=== PATIENT | male | born 1990 | race Caucasian/White ===

== ENCOUNTER 2017-05-21 01:02 | Emergency (ER) | payer BC ==
[2017-05-21] MEDS ORDERED: KETOROLAC 30 MG/ML VIAL IVP ONE (01:10)
[2017-05-21] MEDS ORDERED: 0.9 % SODIUM CHLORIDE 1000ML 1,000 ML IV SCH (01:15)
--- NOTE | 2017-05-21 01:15 | Emergency Department Record ---
History of Present Illness - General Chief complaint: Mouth sores/ulcers Stated complaint: COLD SORES Time Seen by Provider: 05/21/17 01:09 Source: Patient Mode of Arrival: Ambulatory Limitations: No limitations - History of Present Illness Initial comments: 26 yo male presents to ED with a CC of ulcerations to the tongue associated with "swelling" of the tip of the tongue following tongue piercing. Patient denies fevers, chills, or drainage from the piercing site. Patient does reports the sensation of "swelling extending into the neck". Patient denies health problems at his baseline. MD complaint: Other (tongue swelling) Onset/Timin -: Days(s) Location: Throat Severity: Moderate Quality: Other Consistency: Constant Improves with: None Worsens with: None Context- Dental: Other - Related Data Previous Rx's Medication Instructions Recorded Triamcinolone Acet Cream [Kenalog 1 apply TP BID #1 tube 08/25/16 Cream] Clindamycin HCl 300 mg PO QID #39 capsule 05/21/17 Allergies Allergy/AdvReac Type Severity Reaction Status Date / Time No Known Drug Allergies Allergy Verified 08/25/16 17:45 Travel Screening - Travel/Exposure Within Last 30 Days Have you traveled within the last 30 days?: No - Travel/Exposure Within Last Year Have you traveled outside the [place] in the last year?: No - Additonal Travel Details Have you been exposed to anyone with a communicable illness?: No - Travel Symptoms Symptom Screening: None Review of Systems Constitutional: Denies: Chills, Fever, Malaise, Night sweats Eyes: Denies: Eye discharge, Eye pain ENT: Reports: Other (tongue swelling). Denies: Congestion, Ear pain Respiratory: Denies: Cough, Dyspnea Cardiovascular: Denies: Chest pain, Dyspnea on exertion Endocrine: Denies: Fatigue, Heat or cold intolerance Gastrointestinal: Denies: Abdominal pain, Nausea, Vomiting Genitourinary: Denies: Incontinence, Retention Musculoskeletal: Denies: Arthralgia, Back pain, Gout, Joint swelling Skin: Denies: Bruising, Change in color, Change in hair/nails Neurological: Denies: Abnormal gait, Confusion, Headache, Seizure Psychiatric: Denies: Anxiety Hematological/Lymphatic: Denies: Anemia, Blood Clots Past Medical History - SOCIAL HISTORY Smoking Status: Current every day smoker Alcohol Use: None Drug Use: None - RESPIRATORY Hx Respiratory Disorders: No - CARDIOVASCULAR Hx Cardio Disorders: No - NEURO Hx Neuro Disorders: No - GI Hx GI Disorders: No - Hx Genitourinary Disorders: No - ENDOCRINE Hx Endocrine Disorders: No - MUSCULOSKELETAL Hx Musculoskeletal Disorders: No - PSYCH Hx Psych Problems: No - HEMATOLOGY/ONCOLOGY Hx Hematology/Oncology Disorders: No Family Medical History Any Significant Family History?: No Physical Exam - General General Appearance: Alert, Oriented x3, Cooperative, No acute distress Limitations: No limitations - Head Head exam: Atraumatic, Normocephalic, Normal inspection Head exam detail: negative: Abrasion, Contusion, Quintanilla's sign, General tenderness, Hematoma, Laceration - Eye Eye exam: Normal appearance. negative: Conjunctival injection, Periorbital swelling, Periorbital tenderness, Scleral icterus - ENT Ear exam: negative: Auricular hematoma, Auricular trauma Nasal Exam: negative: Active bleeding, Discharge, Dried blood, Foreign body Mouth exam: Other (Mild ulcerations/lesions to the tongue and sublingual region on examination, no drainage noted from the piercing site.). negative: Drooling , Laceration, Muffled voice, Tongue elevation - Neck Neck exam: Normal inspection. negative: Meningismus, Tenderness - Respiratory Respiratory exam: Normal lung sounds bilaterally. negative: Rales, Respiratory distress, Rhonchi, Stridor - Cardiovascular Cardiovascular Exam: Regular rate, Normal rhythm, Normal heart sounds - GI/Abdominal GI/Abdominal exam: Soft. negative: Rebound, Rigid, Tenderness - Rectal Rectal exam: Deferred - exam: Deferred - Extremities Extremities exam: Normal inspection. negative: Calf tenderness, Pedal edema, Tenderness - Back Back exam: Denies: CVA tenderness (R), CVA tenderness (L) - Neurological Neurological exam: Alert, Normal gait, Oriented X3 - Psychiatric Psychiatric exam: Normal affect, Normal mood - Skin Skin exam: Normal color. negative: Abrasion Type of lesion: negative: abrasion Course Vital Signs 05/21/17 01:05 Temperature 98.6 F Pulse Rate 110 H Respiratory 20 Rate Blood Pressure 149/95 Pulse Ox 100 - Reevaluation(s) Reevaluation #1: 05/21/17 01:48 Labs reviewed, WBC 19.6, labs are otherwise grossly unremarkable for an acute process. Reevaluation #2: 05/21/17 02:13 CT Soft tissue neck No acute process Patient was updated on all results, patient reports that upon removal of his piercing there was purulent discharge present. Will initiate Clindamycin with instructions to leave his piercing out until his infection has resolved. Patient appears stable for discharge at this time. Medical Decision Making - Lab Data Result diagrams: 05/21/17 01:10 05/21/17 01:10 Disposition Disposition: Discharge Clinical Impression: Pierced tongue infection Disposition: Home, Self-Care Condition: (2) Stable Instructions: Surgical Site Infections (ED) Additional Instructions: Return to ED if your symptoms worsen or if you have any concerns. Clindamycin as directed. Follow-up with you family doctor in 3-5 days as directed. Prescriptions: Clindamycin HCl 300 mg PO QID #39 capsule Forms: Patient Portal Access Time of Disposition: 01:52 Quality - Quality Measures Quality Measures: N/A - Blood Pressure Screening Blood Pressure Classification: Hypertensive Reading Systolic Measurement: 149 Diastolic Measurement: 95 Screening for High Blood Pressure: < First Hypertensive BP, F/U Documented > [ G8950] First Hypertensive Follow-up Interventions: Referral to alternative/primary care provider.
[2017-05-21 01:29] LABS: HEMATOCRIT 44.5 % (42.0-52.0); HEMOGLOBIN 15.3 gm/dl (14.0-18.0); MEAN CELL VOLUME 93.7 fl (81-97); MEAN CORPUSCULAR HEMOGLOBIN 32.2 pg (27-33); MEAN CORPUSCULAR HGB CONC 34.4 g/dl (32-36); MEAN PLATELET VOLUME 8.9 fl (7.4-10.4); PLATELET COUNT 336 K/uL (130-400); RED BLOOD COUNT 4.75 M/uL (4.40-5.70); RED CELL DISTRIBUTION WIDTH 12.1 % (11.5-14.5); WHITE BLOOD COUNT W/O DIFF 19.6 K/uL (4.2-12.2)
[2017-05-21 01:42] LABS: ALB/GLOB RATIO 1.8 (1.1-1.8); ALBUMIN 5.1 gm/dL (3.5-5.0); BLOOD UREA NITROGEN 10 mg/dL (9-20); CREATININE 0.8 mg/dL (0.66-1.25); EST GLOMERULAR FILTRATION RATE > 60 ml/min; GLUCOSE,RANDOM 111 mg/dL (70-110)
[2017-05-21 01:43] LABS: ALKALINE PHOSPHATASE 64 U/L (38-126); ALT/SGPT 42 U/L (21-72); AST/SGOT 33 U/L (17-59)
[2017-05-21] MEDS ORDERED: CLINDAMYCIN 150 MG CAP PO ONE (02:15)
--- NOTE | 2017-05-23 08:53 | CT SCAN REPORT ---
EXAM: CT OF THE NECK WITH INTRAVENOUS CONTRAST HISTORY: THIS IS A 26-YEAR-OLD MALE WITH THROAT PAIN. TONGUE SWELLING. TECHNIQUE: Routine post contrast CT images of the neck were obtained. FINDINGS: The pharyngeal soft tissues are unremarkable. The parotid, submandibular, and thyroid glands appear normal. No cervical lymphadenopathy. The great vessels of the neck enhance normally with contrast. The visualized paranasal sinuses and mastoid air cells are clear. No acute osseous abnormality. Incidental note is made of a tiny focus of air space disease within the medial left upper lobe which may simply relate to atelectasis. IMPRESSION: ESSENTIALLY UNREMARKABLE EXAMINATION. TINY FOCUS OF GROUND GLASS AIR SPACE DISEASE MEDIAL LEFT UPPER LOBE PROBABLY RELATES TO ATELECTASIS THOUGH DEVELOPING INFILTRATE DIFFICULT TO EXCLUDE IN THE APPROPRIATE CLINICAL SETTING. JOB NUMBER: [id number] [facility]
== END 2017-05-21 02:24 | disposition home or self-care (01) ==
LOC: ER 01:02
DX: S01.532A Puncture wound without foreign body of oral cavity, initial encounter (principal); L08.9 Local infection of the skin and subcutaneous tissue, unspecified; R07.0 Pain in throat; R22.0 Localized swelling, mass and lump, head; F17.210 Nicotine dependence, cigarettes, uncomplicated
CPT/HCPCS: 99284 ×2; 96374; 80053; 85027; 70491; Q9967; J1885; J7030

== ENCOUNTER 2017-05-21 07:59 | Emergency (ER) | payer BC ==
[2017-05-21] MEDS ORDERED: CLINDAMYCIN 600MG/4ML VIAL 600 MG in 0.9 % SODIUM CHLORIDE 100ML 100 ML IV ONE (08:36)
[2017-05-21] MEDS ORDERED: TMP/SMZ 160MG/800MG TAB PO ONE (08:37)
[2017-05-21] MEDS ORDERED: METHYLPREDNISOLONE PF 125MG/VIAL IVP ONE (08:39)
--- NOTE | 2017-05-21 08:45 | Emergency Department Record ---
History of Present Illness - General Chief complaint: ENT Stated complaint: SWOLLEN TONGUE Time Seen by Provider: 05/21/17 08:31 Source: Patient, RN notes reviewed Mode of Arrival: Ambulatory - History of Present Illness Initial comments: swollen tongue, patient is swishing water around the tongue and spitting it out . Piercing done 3 days ago and he had one dose of oral clindamycin at 1 am today in the Ed and he has not picked up the clinda at the drug store because not open yet. No airway problem and he had a CT scan of the neck soft tissue. Onset/Timin -: Days(s) Location: Tongue Severity: Moderate Improves with: None Worsens with: None - Related Data Previous Rx's Medication Instructions Recorded Triamcinolone Acet Cream [Kenalog 1 apply TP BID #1 tube 08/25/16 Cream] Clindamycin HCl 300 mg PO QID #39 capsule 05/21/17 Sulfamethoxazole/Trimethoprim 1 each PO BID #20 tablet 05/21/17 [Bactrim Ds Tablet] Allergies Allergy/AdvReac Type Severity Reaction Status Date / Time No Known Drug Allergies Allergy Verified 05/21/17 08:05 Travel Screening - Travel/Exposure Within Last 30 Days Have you traveled within the last 30 days?: No - Travel/Exposure Within Last Year Have you traveled outside the [place] in the last year?: No - Additonal Travel Details Have you been exposed to anyone with a communicable illness?: No - Travel Symptoms Symptom Screening: None Review of Systems Reviewed: No additional complaints except as noted below Constitutional: Reports: As per HPI. Denies: Chills, Fever, Malaise, Night sweats, Weakness, Weight change Eyes: Reports: As per HPI. Denies: Eye discharge, Eye pain, Photophobia, Vision change ENT: Reports: As per HPI, Other (tongue is swollen and sore). Denies: Congestion, Dental pain, Ear pain, Epistaxis, Hearing loss, Throat pain Respiratory: Reports: As per HPI. Denies: Cough, Dyspnea, Hemoptysis, Stridor, Wheezes Cardiovascular: Reports: As per HPI. Denies: Arrhythmia, Chest pain, Dyspnea on exertion, Edema, Murmurs, Orthopnea, Palpitations, Paroxysmal nocturnal dyspnea, Rheumatic Fever, Syncope Endocrine: Reports: As per HPI. Denies: Fatigue, Heat or cold intolerance, Polydipsia, Polyuria Gastrointestinal: Reports: As per HPI. Denies: Abdominal pain, Constipation, Diarrhea, Hematemesis, Hematochezia, Melena, Nausea, Vomiting Genitourinary: Reports: As per HPI. Denies: Dysuria, Frequency, Hematuria, Incontinence, Retention, Testicular pain, Testicular mass, Urgency Musculoskeletal: Reports: As per HPI. Denies: Arthralgia, Back pain, Gout, Joint swelling, Myalgia, Neck pain Skin: Reports: As per HPI. Denies: Bruising, Change in color, Change in hair/ nails, Lesions, Pruritus, Rash Neurological: Reports: As per HPI. Denies: Abnormal gait, Confusion, Headache, Numbness, Paresthesias, Seizure, Tingling, Tremors, Vertigo, Weakness Psychiatric: Reports: As per HPI. Denies: Anxiety, Auditory hallucinations, Depression, Homicidal thoughts, Suicidal thoughts, Visual hallucinations Hematological/Lymphatic: Reports: As per HPI. Denies: Anemia, Blood Clots, Easy bleeding, Easy bruising, Swollen glands Past Medical History - SOCIAL HISTORY Smoking Status: Current every day smoker Alcohol Use: None Drug Use: None - RESPIRATORY Hx Respiratory Disorders: No - CARDIOVASCULAR Hx Cardio Disorders: No - NEURO Hx Neuro Disorders: No - GI Hx GI Disorders: No - Hx Genitourinary Disorders: No - ENDOCRINE Hx Endocrine Disorders: No - MUSCULOSKELETAL Hx Musculoskeletal Disorders: No - PSYCH Hx Psych Problems: No - HEMATOLOGY/ONCOLOGY Hx Hematology/Oncology Disorders: No Family Medical History Any Significant Family History?: No Physical Exam - General General Appearance: Alert, Oriented x3, Cooperative, No acute distress - Head Head exam: Normal inspection - Eye Eye exam: Normal appearance, PERRL Pupils: Normal accommodation - ENT ENT exam: Normal exam, Mucous membranes moist, Normal external ear exam, Normal orophraynx, TM's normal bilaterally, Other (tongue is swollen airway is good) Ear exam: Normal external inspection. negative: External canal tenderness Nasal Exam: Normal inspection. negative: Discharge, Sinus tenderness Mouth exam: Normal external inspection, Tongue normal Teeth exam: Normal inspection. negative: Dental caries Throat exam: Normal inspection. negative: Tonsillar erythema, Tonsillar exudate - Neck Neck exam: Normal inspection, Full ROM. negative: Tenderness - Respiratory Respiratory exam: Normal lung sounds bilaterally. negative: Respiratory distress - Cardiovascular Cardiovascular Exam: Regular rate, Normal rhythm, Normal heart sounds - GI/Abdominal GI/Abdominal exam: Soft, Normal bowel sounds. negative: Tenderness - Rectal Rectal exam: Deferred - exam: Deferred - Extremities Extremities exam: Normal inspection, Full ROM, Normal capillary refill. negative: Tenderness - Back Back exam: Reports: Normal inspection, Full ROM. Denies: Muscle spasm, Rash noted, Tenderness - Neurological Neurological exam: Alert, Normal gait, Oriented X3, Reflexes normal - Psychiatric Psychiatric exam: Normal affect, Normal mood - Skin Skin exam: Dry, Intact, Normal color, Warm Course Vital Signs 05/21/17 08:06 Temperature 98.4 F Pulse Rate 92 H Respiratory 16 Rate Blood Pressure 164/98 Pulse Ox 100 Disposition Clinical Impression: Cellulitis of tongue, Pierced tongue infection Disposition: Home, Self-Care Condition: (1) Good Instructions: Cellulitis (ED) Additional Instructions: return to ED if worse see family in 3 days Prescriptions: Sulfamethoxazole/Trimethoprim [Bactrim Ds Tablet] 1 each PO BID #20 tablet Forms: Patient Portal Access Time of Disposition: 09:00 Quality - Quality Measures Quality Measures: N/A - Blood Pressure Screening Blood Pressure Classification: Hypertensive Reading Systolic Measurement: 164 Diastolic Measurement: 98 Screening for High Blood Pressure: < First Hypertensive BP, F/U Documented > [ G8950] First Hypertensive Follow-up Interventions: Referral to alternative/primary care provider.
--- NOTE | 2017-05-21 09:33 | Emergency Department Record ---
History of Present Illness - General Chief complaint: ENT Stated complaint: SWOLLEN TONGUE Time Seen by Provider: 05/21/17 08:31 Source: Patient, RN notes reviewed Mode of Arrival: Ambulatory - History of Present Illness Onset/Timin -: Days(s) Location: Tongue Severity: Moderate Improves with: None Worsens with: None - Related Data Previous Rx's Medication Instructions Recorded Triamcinolone Acet Cream [Kenalog 1 apply TP BID #1 tube 08/25/16 Cream] Clindamycin HCl 300 mg PO QID #39 capsule 05/21/17 Hydrocodone/Acetaminophen [[place] 1 each PO Q6HR #14 tablet 05/21/17 5-325 Tablet] Sulfamethoxazole/Trimethoprim 1 each PO BID #20 tablet 05/21/17 [Bactrim Ds Tablet] Allergies Allergy/AdvReac Type Severity Reaction Status Date / Time No Known Drug Allergies Allergy Verified 05/21/17 08:05 Travel Screening - Travel/Exposure Within Last 30 Days Have you traveled within the last 30 days?: No - Travel/Exposure Within Last Year Have you traveled outside the [place] in the last year?: No - Additonal Travel Details Have you been exposed to anyone with a communicable illness?: No - Travel Symptoms Symptom Screening: None Review of Systems Constitutional: Reports: As per HPI. Denies: Chills, Fever, Malaise, Night sweats, Weakness, Weight change Eyes: Reports: As per HPI. Denies: Eye discharge, Eye pain, Photophobia, Vision change ENT: Reports: As per HPI, Other (tongue is swollen and sore). Denies: Congestion, Dental pain, Ear pain, Epistaxis, Hearing loss, Throat pain Respiratory: Reports: As per HPI. Denies: Cough, Dyspnea, Hemoptysis, Stridor, Wheezes Cardiovascular: Reports: As per HPI. Denies: Arrhythmia, Chest pain, Dyspnea on exertion, Edema, Murmurs, Orthopnea, Palpitations, Paroxysmal nocturnal dyspnea, Rheumatic Fever, Syncope Endocrine: Reports: As per HPI. Denies: Fatigue, Heat or cold intolerance, Polydipsia, Polyuria Gastrointestinal: Reports: As per HPI. Denies: Abdominal pain, Constipation, Diarrhea, Hematemesis, Hematochezia, Melena, Nausea, Vomiting Genitourinary: Reports: As per HPI. Denies: Dysuria, Frequency, Hematuria, Incontinence, Retention, Testicular pain, Testicular mass, Urgency Musculoskeletal: Reports: As per HPI. Denies: Arthralgia, Back pain, Gout, Joint swelling, Myalgia, Neck pain Skin: Reports: As per HPI. Denies: Bruising, Change in color, Change in hair/ nails, Lesions, Pruritus, Rash Neurological: Reports: As per HPI. Denies: Abnormal gait, Confusion, Headache, Numbness, Paresthesias, Seizure, Tingling, Tremors, Vertigo, Weakness Psychiatric: Reports: As per HPI. Denies: Anxiety, Auditory hallucinations, Depression, Homicidal thoughts, Suicidal thoughts, Visual hallucinations Hematological/Lymphatic: Reports: As per HPI. Denies: Anemia, Blood Clots, Easy bleeding, Easy bruising, Swollen glands Past Medical History - SOCIAL HISTORY Smoking Status: Current every day smoker Alcohol Use: None Drug Use: None - RESPIRATORY Hx Respiratory Disorders: No - CARDIOVASCULAR Hx Cardio Disorders: No - NEURO Hx Neuro Disorders: No - GI Hx GI Disorders: No - Hx Genitourinary Disorders: No - ENDOCRINE Hx Endocrine Disorders: No - MUSCULOSKELETAL Hx Musculoskeletal Disorders: No - PSYCH Hx Psych Problems: No - HEMATOLOGY/ONCOLOGY Hx Hematology/Oncology Disorders: No Family Medical History Any Significant Family History?: No Course Vital Signs 05/21/17 08:06 Temperature 98.4 F Pulse Rate 92 H Respiratory 16 Rate Blood Pressure 164/98 Pulse Ox 100 Disposition Clinical Impression: Cellulitis of tongue, Pierced tongue infection Disposition: Home, Self-Care Condition: (1) Good Instructions: Cellulitis (ED) Additional Instructions: return to ED if worse see family in 3 days Prescriptions: Hydrocodone/Acetaminophen [[place] 5-325 Tablet] 1 each PO Q6HR #14 tablet Sulfamethoxazole/Trimethoprim [Bactrim Ds Tablet] 1 each PO BID #20 tablet Forms: Patient Portal Access Quality - Quality Measures Quality Measures: N/A - Blood Pressure Screening Blood Pressure Classification: Hypertensive Reading Systolic Measurement: 164 Diastolic Measurement: 98 Screening for High Blood Pressure: < First Hypertensive BP, F/U Documented > [ G8950] First Hypertensive Follow-up Interventions: Referral to alternative/primary care provider.
== END 2017-05-21 09:39 | disposition home or self-care (01) ==
LOC: ER 07:59
DX: S01.532A Puncture wound without foreign body of oral cavity, initial encounter (principal); K12.2 Cellulitis and abscess of mouth; K14.0 Glossitis; F17.210 Nicotine dependence, cigarettes, uncomplicated
CPT/HCPCS: 99284 ×2; 96365; 96375; J3490; J2930

== ENCOUNTER 2017-11-11 10:10 | Emergency (ER) | payer BC ==
[2017-11-11] MEDS ORDERED: ACETAMINOPHEN 325 MG TAB PO ONE (10:26)
[2017-11-11] MEDS ORDERED: IBUPROFEN 400 MG TABLET PO ONE (10:26)
--- NOTE | 2017-11-11 10:39 | Emergency Department Record ---
History of Present Illness - General Chief complaint: Flu Like Symptoms Stated complaint: PEDERSEN/ BODY ACHES Time Seen by Provider: 11/11/17 10:20 Source: Patient Mode of Arrival: Ambulatory Limitations: No limitations - History of Present Illness Initial comments: The patient is here due to a one day hx of body aches, low grade fever, mild PEDERSEN , mild cough and lack of energy. He denies any sputum production, SOB, DWAINE, ST, nausea or vomiting. He did not take any Tylenol or Motrin for the PEDERSEN and fever today. His grandmother is in the hospital here with Influenza A and he did not get a flu shot. MD Complaint: Generalized weakness Onset/Timin -: Days(s) Location: Generalized Severity scale (1-10): 6 Quality: Aching Consistency: Constant Improves with: None Worsens with: None Associated Symptoms: Headaches - Related Data Previous Rx's Medication Instructions Recorded Oseltamivir Phosphate [Tamiflu] 75 mg PO BID #10 capsule 11/11/17 Allergies Allergy/AdvReac Type Severity Reaction Status Date / Time No Known Drug Allergies Allergy Unverified 05/25/17 12:54 Travel Screening - Travel/Exposure Within Last 30 Days Have you traveled within the last 30 days?: No Review of Systems Constitutional: Reports: Fever, Malaise. Denies: Chills Eyes: Denies: Eye discharge ENT: Denies: Congestion Respiratory: Reports: Cough. Denies: Dyspnea Past Medical History - SOCIAL HISTORY Smoking Status: Current every day smoker Alcohol Use: None Drug Use: None - RESPIRATORY Hx Respiratory Disorders: No - CARDIOVASCULAR Hx Cardio Disorders: No - NEURO Hx Neuro Disorders: No - GI Hx GI Disorders: No - Hx Genitourinary Disorders: No - ENDOCRINE Hx Endocrine Disorders: No - MUSCULOSKELETAL Hx Musculoskeletal Disorders: No - PSYCH Hx Psych Problems: No - HEMATOLOGY/ONCOLOGY Hx Hematology/Oncology Disorders: No Family Medical History Any Significant Family History?: No Physical Exam - General General Appearance: Alert, Oriented x3, Cooperative, No acute distress (The patient appears very healthy and nontoxic.) - Head Head exam: Atraumatic, Normocephalic, Normal inspection - Eye Eye exam: Normal appearance, PERRL - ENT ENT exam: Normal exam, Mucous membranes moist, Normal external ear exam, Normal orophraynx, TM's normal bilaterally Throat exam: Normal inspection. negative: Tonsillar erythema, Tonsillar exudate - Neck Neck exam: Normal inspection, Full ROM. negative: Meningismus (The neck is very supple.), Tenderness - Respiratory Respiratory exam: Normal lung sounds bilaterally. negative: Respiratory distress - Cardiovascular Cardiovascular Exam: Regular rate, Normal rhythm, Normal heart sounds - GI/Abdominal GI/Abdominal exam: Soft, Normal bowel sounds. negative: Tenderness - Extremities Extremities exam: Normal inspection, Full ROM, Normal capillary refill. negative: Tenderness - Neurological Neurological exam: Alert, Normal gait, Oriented X3. negative: Abnormal gait, Motor sensory deficit Course Vital Signs 11/11/17 10:14 Temperature 99.9 F H Pulse Rate 121 H Respiratory 14 Rate Blood Pressure 121/71 Pulse Ox 98 - Reevaluation(s) Reevaluation #1: The patient is doing a lot better at this time. His temp is improved and he denies any PEDERSEN or body aches. I did explain to him that his FLu test is Positive and we will discharge him on Tamiflu. 11/11/17 11:26 Medical Decision Making - Data Complexity MDM Data: Labs Ordered and/or Reviewed (Flu A positive.), X-Ray Ordered and/or Reviewed - Lab Data Result diagrams: 11/11/17 10:47 11/11/17 10:47 - Radiology Data Radiology results: Report reviewed (CXR: Neg.) Disposition Disposition: Discharge Clinical Impression: Influenza A Disposition: Home, Self-Care Condition: (2) Stable Instructions: Influenza (ED) Additional Instructions: Drink plenty of fluids. Take the Tamiflu as directed and use Tylenol or Motrin for body aches and fever. Please see your PCP next week if not better and return to the ER for any worsening symptoms. Prescriptions: Oseltamivir Phosphate [Tamiflu] 75 mg PO BID #10 capsule Forms: Patient Portal Access Time of Disposition: 11:24 Quality - Quality Measures Quality Measures: N/A - Blood Pressure Screening View Details: Yes Does Patient Have Any of the Following: No Blood Pressure Classification: Normal BP Reading Systolic Measurement: 118 Diastolic Measurement: 62 Screening for High Blood Pressure: < Normal BP, F/U Not Required > [G8783]
[2017-11-11 10:50] LABS: INFLUENZA A POSITIVE (NEGATIVE); INFLUENZA B NEGATIVE (NEGATIVE)
[2017-11-11 10:56] LABS: HEMATOCRIT 46.5 % (42.0-52.0); HEMOGLOBIN 16.2 gm/dl (14.0-18.0); MEAN CELL VOLUME 91.4 fl (81-97); MEAN CORPUSCULAR HEMOGLOBIN 31.8 pg (27-33); MEAN CORPUSCULAR HGB CONC 34.8 g/dl (32-36); MEAN PLATELET VOLUME 8.6 fl (7.4-10.4); PLATELET COUNT 230 K/uL (130-400); RED BLOOD COUNT 5.09 M/uL (4.40-5.70); RED CELL DISTRIBUTION WIDTH 12.4 % (11.5-14.5); WHITE BLOOD COUNT W/O DIFF 6.2 K/uL (4.2-12.2)
[2017-11-11 11:08] LABS: BLOOD UREA NITROGEN 16 mg/dL (6-20); CREATININE 0.9 mg/dL (0.7-1.2); EST GLOMERULAR FILTRATION RATE > 60 mL/min
[2017-11-11 11:09] LABS: TOTAL PROTEIN 8.3 g/dL (6.6-8.7)
[2017-11-11 11:11] LABS: GLUCOSE,RANDOM 108 mg/dL (74-109)
[2017-11-11 11:13] LABS: ALBUMIN 5.2 g/dL (4.0-5.0); ALT/SGPT 33 U/L (<41); AST/SGOT 38 U/L (10.0-50.0)
[2017-11-11 11:14] LABS: ALB/GLOB RATIO 1.7 (1.1-1.8); ALKALINE PHOSPHATASE 54 U/L (40-129); C-REACTIVE PROTEIN 4.16 mg/dL (<0.5)
--- NOTE | 2017-11-12 19:04 | RADIOLOGY REPORT ---
EXAM: CHEST 2 VIEWS HISTORY: INTERMITTENT COUGH. TECHNIQUE: Upright PA and lateral views of the chest. COMPARISON: None. FINDINGS: The cardiomediastinal silhouette is normal in size and configuration. The pulmonary vasculature is nondilated. The lungs and pleural spaces are clear. There is a deep inspiration. The osseous structures are intact. IMPRESSION: NEGATIVE CHEST. JOB NUMBER: [id number] [facility]
== END 2017-11-11 11:29 | disposition home or self-care (01) ==
LOC: ER 10:10
DX: J10.1 Influenza due to other identified influenza virus with other respiratory manifestations (principal); R53.1 Weakness; R51 Headache; F17.210 Nicotine dependence, cigarettes, uncomplicated
CPT/HCPCS: 71046; 80053; 85027; 86140; 87400; 99283; 99284